=== PATIENT | male | born 1985 | race African-American/Black ===

== ENCOUNTER 2016-05-27 18:13 | Emergency (ER) | payer OTHER ==
[~2016-05-27] VITALS: Ht 185.4 cm; Wt 86.3 kg
[2016-05-27 18:50] VITALS: BP 120/77
== END 2016-05-27 18:50 ==
LOC: EME 18:13
DX: S00.511A Abrasion of lip, initial encounter (principal); S00.01XA Abrasion of scalp, initial encounter; R22.0 Localized swelling, mass and lump, head; Y35.811A Legal intervention involving manhandling, law enforcement official injured, initial encounter; Z28.21 Immunization not carried out because of patient refusal; F17.200 Nicotine dependence, unspecified, uncomplicated
CPT/HCPCS: 99281; 99283

== ENCOUNTER 2017-05-13 14:40 | Emergency (ER) | payer OTHER ==
[~2017-05-13] VITALS: Ht 185.4 cm; Wt 97.3 kg
[2017-05-13 16:23] VITALS: BP 120/76
== END 2017-05-13 16:24 | disposition home or self-care (01) ==
LOC: EME 14:40
DX: J10.1 Influenza due to other identified influenza virus with other respiratory manifestations (principal); F17.200 Nicotine dependence, unspecified, uncomplicated
CPT/HCPCS: 87502; 99281; 99283